=== PATIENT | male | born 1950 | race Caucasian/White ===

== ENCOUNTER → 2017-03-03 | Outpatient (CLI) | payer MEDICARE ==
--- NOTE | 2017-03-03 07:23 | US ---
EXAMINATION TYPE: US duplex aorta DATE OF EXAM: 03/03/2017 COMPARISON: CT CLINICAL HISTORY: Z13.9 Screening for Abdominal Aortic Anuerysm. Screening for AAA, pt has no complai nts at this time EXAM MEASUREMENTS: Abdominal Aorta: Proximal: 2.1 x 2.1 cm Mid: 1.8 x 1.9 cm Distal: 1.9 x 1.7 cm Bifurcation: PANDA: 1.0 x 1.0 cm NASH: 0.9 x 1.0 cm Aortic wall calcifications, no evidence of AAA IMPRESSION: 1. No abdominal aortic aneurysm.
== END | disposition home or self-care (01) ==
LOC: RADUSWWP 06:55
PROVIDERS: ATTEND Family Medicine
DX: Z13.6 Encounter for screening for cardiovascular disorders (principal); C34.90 Malignant neoplasm of unspecified part of unspecified bronchus or lung
CPT/HCPCS: 93979

== ENCOUNTER → 2017-03-23 | Outpatient (CLI) | payer MEDICARE ==
--- NOTE | 2017-03-23 13:49 | BD ---
EXAMINATION TYPE: MG DEXA axial skeleton. DATE OF EXAM: 03/23/2017 COMPARISON: NONE CLINICAL HISTORY: M81.0 KNOWN OSTEOPOROSIS Height: 64 Weight: 132 FRAX RISK QUESTIONS: Alcohol (3 or more units per day): NO Family History (Parent hip fracture): UNKNOWN Glucocorticoids (More than 3mos): YES (Ex: prednisone, prednisolone, methylprednisolone, dexamethasone, and hydrocortisone). History of Fracture in Adulthood: YES Secondary Osteoporosis: NO 1. Type 1 Diabetes: NO 2. Hyperthyroidism: NO 3. Menopause before 45: NA 4. Malnutrition: NO 5. Chronic liver disease: NO Rheumatoid Arthritis: NO Current Tobacco Use: NO....QUIT IN 2010 RISK FACTORS HISTORY OF: Surgery to Spine/ FUSION AND PINS...LOWER BACK When: 2010 Family History of Osteoporosis: UNKNOWN Active: YES Diet low in dairy products/other sources of calcium: NO Lost more than 2 inches in height since high school: YES Hyperparathyroidism: NO Adrenal Insufficiency: NO MEDICATIONS: Prednisone or other steroids: SPRING AND FALL.....FOR ALLERGIES AND COPD How Long: FOR YRS... Additional Medications: NOTING Additional History: ARTHRITIS, REMOVAL OF LT UPPER LOBE OF LUNG EXAM MEASUREMENTS: Bone mineral densitometry was performed using the Vertro System. SPINAL FUSION WITH HARDWARE IN LUMBAR SPINE Bone mineral density about the R hip (g/cm2): 0.795 Bone mineral density about the L hip (g/cm2): 0.737 T Score values are as follows: -----R Neck: -2.2 -----L Neck: -2.2 -----R Total: -1.7 -----L Total: -1.4 Bone mineral density THIS IS HIS FIRST BONE DENSITY SCAN.....BASELINE STUDY FRAX %'S: THERE IS A 13.8% CHANCE OF A MAJOR OSTEOPOROTIC FX AND A 2.5% CHANCE FOR HIP FX.....PROB ABILITY IN 10/YRS TIME IMPRESSION: Osteopenia (T Score between -2.5 and -1 as noted by T score values There is slightly increased risk of fracture and the patient may be considered for treatment. Re-Screen 2-5 years. FOR BOTH OF HIS HIPS NOTE: T-SCORE=SD OF THE YOUNG ADULT MEAN.
== END | disposition home or self-care (01) ==
LOC: RADBDWWP 07:45
PROVIDERS: ATTEND Family Medicine
DX: M85.80 Other specified disorders of bone density and structure, unspecified site (principal)
CPT/HCPCS: 77080

== ENCOUNTER → 2019-09-03 | Outpatient (CLI) | payer MEDICARE ==
--- NOTE | 2019-09-04 11:36 | ECHOF ---
Referral Reason:I51.7 L ventricular hypertrophy MEASUREMENTS -------- HEIGHT: 165.1 cm WEIGHT: 59.0 kg BP: RVIDd: 3.5 cm (< 3.3) IVSd: 1.2 cm (0.6 - 1.1) LVIDd: 3.2 cm (3.9 - 5.3) LVPWd: 1.1 cm (0.6 - 1.1) IVSs: 1.3 cm LVIDs: 2.5 cm LVPWs: 1.3 cm LAESV Index (A-L): 20.38 ml/m Ao Diam: 3.4 cm (2.0 - 3.7) AV Cusp: 1.7 cm (1.5 - 2.6) MV EXCURSION: 16.703 mm (> 18.000) MV EF SLOPE: 123 mm/s (70 - 150) EPSS: 0.3 cm MV E Nader: 0.34 m/s MV DecT: 182 ms MV A Nader: 0.72 m/s MV E/A Ratio: 0.47 RAP: 5.00 mmHg RVSP: 13.38 mmHg FINDINGS -------- Sinus rhythm. This was a technically good study. The left ventricular size is normal. There is mild concentric left ventricular hypertrophy. Overa ll left ventricular systolic function is normal with, an EF between 55 - 60 %. The diastolic fillin g pattern is normal for the age of the patient 3.92. The right ventricle is normal in size. The left atrial size is normal. Normal LA size by volume 22+/-6 ml/m2. The right atrial size is normal. There is mild aortic valve sclerosis. There is no evidence of aortic regurgitation. Mild mitral annular calcification present. Mild mitral regurgitation is present. Mild tricuspid regurgitation present. Right ventricular systolic pressure is normal at < 35 mmHg. There is no evidence of pulmonary hypertension. There is no pulmonic regurgitation present. The aortic root size is normal. There is no pericardial effusion. CONCLUSIONS -------- 1. Sinus rhythm. 2. This was a technically good study. 3. The left ventricular size is normal. 4. There is mild concentric left ventricular hypertrophy. 5. Overall left ventricular systolic function is normal with, an EF between 55 - 60 %. 6. The diastolic filling pattern is normal for the age of the patient 3.92 7. The right ventricle is normal in size. 8. The left atrial size is normal. 9. Normal LA size by volume 22+/-6 ml/m2. 10. The right atrial size is normal. 11. There is mild aortic valve sclerosis. 12. Mild mitral annular calcification present. 13. Mild mitral regurgitation is present. 14. Mild tricuspid regurgitation present. 15. Right ventricular systolic pressure is normal at < 35 mmHg. 16. There is no evidence of pulmonary hypertension. 17. There is no pulmonic regurgitation present. 18. The aortic root size is normal. 19. There is no pericardial effusion. PHOTO TUBE ASSEMBLER: Samira Diane RDCS
== END | disposition home or self-care (01) ==
LOC: RADECHMAIN 12:38
PROVIDERS: ATTEND Family Medicine
DX: I08.1 Rheumatic disorders of both mitral and tricuspid valves (principal)
CPT/HCPCS: 93306

== ENCOUNTER 2022-06-08 07:20 | Day surgery (SDC) | payer MEDICARE ==
[2022-06-07 08:36] VITALS: BMI 21.6
[~2022-06-08 07:20] MED LIST: LACTATED RINGERS 1,000 ML IV SCH
[2022-06-08 07:45] VITALS: RESP 16; TEMP 98.6
[2022-06-08] MEDS ORDERED: LIDOCAINE 1% (10MG/ML) FOR IV START INTRADERMA ONE (07:45)
[2022-06-08] MEDS ORDERED: PROPOFOL 10 MG/ML 20 ML VIAL IV ONE (08:06)
--- NOTE | 2022-06-08 08:25 | P.PCN ---
Date of Procedure: 06/08/22 Procedure(s) Performed: BRIEF HISTORY: Patient is a 71-year-old pleasant white male scheduled for an elective colonoscopy as a part of screening for colorectal neoplasia PROCEDURE PERFORMED: Colonoscopy With snare polypectomy PREOPERATIVE DIAGNOSIS: Screening for colon cancer. IV sedation per Anesthesia. PROCEDURE: After informed consent was obtained, the patient, was brought into the endoscopy unit. IV sedation was administered by Anesthesia under continuous monitoring. Digital rectal examination was normal. Initially the Olympus CF-160 flexible video colonoscope was then inserted in the rectum, gradually advanced into the cecum without any difficulty. Careful examination was performed as the scope was gradually being withdrawn. Ileocecal valve and the appendiceal orifice were visualized and appeared normal. Prep was excellent. Mucosa of the cecum had a 5 mm polyp that was removed by snare polypectomy. In the transverse colon there was a 6 mm polyp removed by snare polypectomy. In the descending colon there was a 5 mm and 7 mm polyp removed by snare polypectomy. Rest of the , a scending colon, transverse colon, descending colon, sigmoid colon, and rectum appeared normal. Scattered sigmoid diverticulosis. Retroflexion was performed in the rectum and no lesions were seen. The patient tolerated the procedure well. IMPRESSION: 5 mm cecal polyp status post polypectomy 6 mm transverse colon polyp status post polypectomy 3 mm and 7 mm descending colon polyp status post polypectomy Scattered sigmoid diverticulosis RECOMMENDATIONS: Findings of this examination were discussed with the patient [as well as her family. He was advised to follow with the biopsy results. If the biopsy result adenoma he can have a repeat colonoscopy in 3 years.
[2022-06-08 08:51] VITALS: BP 110/84; PULSE 89
== END 2022-06-08 09:22 | disposition home or self-care (01) ==
LOC: ORWHC2ENDO 07:20
PROVIDERS: ATTEND Internal Medicine Gastroenterology
DX: Z12.11 Encounter for screening for malignant neoplasm of colon (principal); D12.0 Benign neoplasm of cecum; D12.3 Benign neoplasm of transverse colon; D12.4 Benign neoplasm of descending colon; K57.30 Diverticulosis of large intestine without perforation or abscess without bleeding; J44.9 Chronic obstructive pulmonary disease, unspecified; M54.9 Dorsalgia, unspecified; Z87.891 Personal history of nicotine dependence; Z85.118 Personal history of other malignant neoplasm of bronchus and lung; Z88.1 Allergy status to other antibiotic agents; Z79.899 Other long term (current) drug therapy; Z79.2 Long term (current) use of antibiotics
CPT/HCPCS: 88305; 45385; J2704